=== PATIENT | male | born 1945 | race Caucasian/White ===

== ENCOUNTER 2017-10-21 15:21 | Outpatient (CLI) | payer MEDICARE, BC | END 2017-10-21 15:22 | disposition home or self-care (01) | LOC: BICMRI 15:21 | PROVIDERS: ATTEND Orthopaedic Surgery | DX: M25.512 Pain in left shoulder (principal); M19.012 Primary osteoarthritis, left shoulder; R93.7 Abnormal findings on diagnostic imaging of other parts of musculoskeletal system; Z98.890 Other specified postprocedural states ==

== ENCOUNTER 2021-07-12 06:01 | Inpatient (IN) | payer MEDICARE, BC ==
[2021-07-12] MEDS ORDERED: Iopamidol 370 76% 100 ML VIAL ONE (08:28)
[2021-07-12] MEDS ORDERED: Lidocaine 1% (PF) 30 ML VIAL ONE (09:08)
[2021-07-12] MEDS ORDERED: Ondansetron PF 4 MG/2 ML Vial ONE (09:32)
[2021-07-12] MEDS ORDERED: Fentanyl 100 MCG/2 ML VIAL ONE (09:32)
[2021-07-12] MEDS ORDERED: Midazolam HCl 2 mg/2 ml Vial ONE (09:33)
[2021-07-12] MEDS ORDERED: Nitroglycerin 100MG/250ML BOT 250 ML ONE (10:00)
[2021-07-12] MEDS ORDERED: Temazepam 15 MG CAP PO PRN ×2 (10:52→16:30)
[2021-07-12] MEDS ORDERED: Acetaminophen/Codeine 30-300mg Tablet ONE (12:24)
[2021-07-12] MEDS ORDERED: Nitroglycerin 0.4 MG TAB (25 Tab Bottle) SL PRN (12:30)
[2021-07-12] MEDS ORDERED: Acetaminophen/Codeine 30-300mg Tablet PO PRN ×2 (12:30)
[2021-07-12] MEDS ORDERED: Sodium Chloride 0.9% 1,000 ML IV SCH (12:30)
[2021-07-12] MEDS ORDERED: Communication Order-Pharmacy FS SCH (15:58)
[2021-07-12] MEDS: Rosuvastatin 20 MG TAB PO SCH ×2 (21:17→21:33)
[2021-07-12] MEDS: Lisinopril 20 MG TAB PO SCH (21:17)
[2021-07-12] MEDS: Carvedilol 6.25 MG TAB PO SCH (21:18)
[2021-07-13] MEDS ORDERED: CEFAZOLIN 2 GM, Admixture Fee 1 EACH in Sodium Chloride 0.9% 100 ML IVPB SCH (02:45)
[2021-07-13] MEDS ORDERED: Lactated Ringer's 1,000 ML IV SCH (06:00)
[2021-07-13] MEDS: Lisinopril 20 MG TAB PO SCH (07:48)
[2021-07-13] MEDS: Carvedilol 6.25 MG TAB PO SCH (07:50)
[2021-07-13] MEDS ORDERED: Amlodipine 10 MG TAB PO SCH (09:00)
[2021-07-13] MEDS ORDERED: Aspirin 325 MG TAB PO SCH (09:00)
[2021-07-13] MEDS ORDERED: Allopurinol 300 MG TAB PO SCH (09:00)
[2021-07-13] MEDS ORDERED: Cyanocobalamin (Vitamin B-12) 1,000 MCG TAB PO SCH (09:00)
[2021-07-13] MEDS ORDERED: Magnesium Oxide 400 MG TAB PO SCH (09:00)
[2021-07-13] MEDS ORDERED: PHENYLEPHRINE-NS 100 MCG/ML 10 ML SYRINGE ONE ×2 (10:19→14:14)
[2021-07-13] MEDS ORDERED: Albumin 5% 500 ML ONE ×2 (10:19→15:18)
[2021-07-13] MEDS ORDERED: EPINEPHrine 1 MG/ML AMP ONE (10:19)
[2021-07-13] MEDS ORDERED: Bupivacaine PF 0.5% 30 ML VIAL ONE (10:19)
[2021-07-13] MEDS ORDERED: Heparin 10,000 UNITS/1 ML VIAL 30,000 UNITS in Sodium Chloride 0.9% 1,000 ML FS SCH (11:15)
[2021-07-13] MEDS ORDERED: Fentanyl 250 MCG/5 ML VIAL ONE ×3 (12:04→12:05)
[2021-07-13] MEDS ORDERED: Phenylephrine 10 MG/ML VIAL ONE (12:05)
[2021-07-13] MEDS ORDERED: ceFAZolin (BATCH) 2 GM/100 ML BAG ONE (13:36)
[2021-07-13] MEDS ORDERED: Magnesium Sulfate 1 GM/2 ML VIAL ONE (14:14)
[2021-07-13] MEDS ORDERED: PROPOFOL 200 MG/20 ML VIAL ONE (14:14)
[2021-07-13] MEDS ORDERED: ePHEDrine 50 MG/ML VIAL ONE (14:14)
[2021-07-13] MEDS ORDERED: Thrombin 5000 UNITS/5 ML VIAL ONE (14:14)
[2021-07-13] MEDS ORDERED: Calcium Chloride 1 GM/10 ML Abboject SYRINGE ONE (14:14)
[2021-07-13] MEDS ORDERED: Heparin 5,000 UNITS/ML VIAL ONE (14:14)
[2021-07-13] MEDS ORDERED: Sodium Bicarb 50 MEQ/50 ML Abboject 8.4% SYRINGE ONE (14:14)
[2021-07-13] MEDS ORDERED: Heparin 30,000 units/30 ml VIAL ONE (14:14)
[2021-07-13] MEDS ORDERED: Aminocaproic Acid 5 GM/20 ML VIAL ONE (14:14)
[2021-07-13] MEDS ORDERED: Lidocaine 2% PF 100 mg/5 ml Syringe ONE (14:14)
[2021-07-13] MEDS ORDERED: Papaverine 60 MG/2 ML VIAL ONE (14:14)
[2021-07-13] MEDS ORDERED: Mannitol 12.5 GM/50 ML ONE (14:14)
[2021-07-13] MEDS ORDERED: Protamine Sulfate 250 MG/25 ML VIAL ONE (14:14)
[2021-07-13] MEDS ORDERED: Metoprolol Tartrate 5 MG/5 ML VIAL ONE (14:14)
[2021-07-13] MEDS ORDERED: Rocuronium Bromide 10 MG/ML (10ML VIAL) ONE (14:14)
[2021-07-13] MEDS ORDERED: Lidocaine 1% PF 5 ML VIAL ONE (14:14)
[2021-07-13] MEDS ORDERED: Cardioplegic Soln 1,000 ML BAG ONE (14:14)
[2021-07-13] MEDS ORDERED: Hetastarch 6% 500 ML 500 ML IVPB PRN (17:16)
[2021-07-13] MEDS ORDERED: Mag-Al 1200 mg/1200 mg/30 ML UDCUP PO PRN (17:16)
[2021-07-13] MEDS ORDERED: Fentanyl 100 MCG/2 ML VIAL SLOW IVP PRN ×2 (17:16)
[2021-07-13] MEDS ORDERED: DOPamine 400 MG/D5W 250 ML 250 ML IVPB PRN (17:16)
[2021-07-13] MEDS ORDERED: Bisacodyl 10 MG SUPP PR PRN (17:16)
[2021-07-13] MEDS ORDERED: Post-Op Insulin Drip Protocol IVPB ONE (17:16)
[2021-07-13] MEDS ORDERED: HYDROcodone/Acetaminophen 5/325 mg Tablet PO PRN (17:16)
[2021-07-13] MEDS ORDERED: Acetaminophen 325 MG TAB PO PRN (17:16)
[2021-07-13] MEDS ORDERED: Bisacodyl 5 MG TAB PO PRN (17:16)
[2021-07-13] MEDS ORDERED: hydrALAZINE 20 MG/ML VIAL SLOW IVP PRN (17:16)
[2021-07-13] MEDS ORDERED: Nitroglycerin 50 MG/250 ML BOT 250 ML IVPB PRN (17:16)
[2021-07-13] MEDS ORDERED: niCARdipine 25 MG in Sodium Chloride 0.9% 250 ML 250 ML IVPB PRN (17:16)
[2021-07-13] MEDS ORDERED: Guaifenesin DM 100-10/5 ML UDCUP PO PRN (17:16)
[2021-07-13] MEDS ORDERED: Insulin Regular 300 UNITS/3 ML VIAL SC PRN (17:30)
[2021-07-13] MEDS ORDERED: HUMULIN R 100 UNITS in Sodium Chloride 0.9% 100 ML IVPB SCH (17:30)
[2021-07-13] MEDS ORDERED: Dextrose 50% Abboject 50 ML SYRINGE SLOW IVP PRN (17:30)
[2021-07-13] MEDS ORDERED: Dextrose 5% in Water 1,000 ML IV PRN (17:30)
[2021-07-13] MEDS: Morphine 2 MG/ML VIAL SLOW IVP PRN ×2 (17:36→18:08)
[2021-07-13 17:41] LABS: #Eosinphils 0.3 thou/uL (0.0-0.7); #Lymphocytes 2.3 thou/uL (1.20-3.40); #Monocytes 0.2 thou/uL (0.11-0.59); #Neutrophils 9.2 thou/uL (1.40-6.50); %Basophils 0.3 % (0.0-1.0); %Eosinophils 2.5 % (0.0-10.0); %Monocytes 1.5 % (0.0-10.0); %Neutrophils 76.7 % (42.0-75.0); Hemoglobin 11.4 g/dL (14.0-18.0); Mean Corpuscular HGB CONC 33.5 g/dL (32.0-36.0); Mean Corpuscular Hemoglobin 31.8 pg (27.0-31.0); Mean Corpuscular Volume 94.9 fL (78.0-98.0); Mean Platelet Volume 6.2 fL (7.4-10.4); Platelet Count 144 thou/uL (130-400); RBC Distribution Width 12.7 % (11.5-14.5); Red Blood Cell (RBC) Count 3.58 mill/uL (4.70-6.10)
[2021-07-13 17:50] LABS: INR-International Normal Ratio 1.4
[2021-07-13] MEDS: Sodium Chloride 0.9% 1,000 ML IV SCH (17:56)
[2021-07-13 18:00] LABS: Anion Gap 13 mmol/L (10-20); BUN (Urea Nitrogen) 15 mg/dL (8.4-25.7); Calc. Creatinine Clearance 89 mL/min (70-130); Carbon Dioxide 22 mmol/L (23-31); Chloride 110 mmol/L (98-107); Glucose 113 mg/dL (83-110); Potassium 3.9 mmol/L (3.5-5.1); Sodium 141 mmol/L (136-145)
[2021-07-13] MEDS: Ketorolac Tromethamine 30 MG/ML VIAL IVP SCH ×2 (18:14→23:19)
[2021-07-13] MEDS: Potassium Chloride 20 MEQ/100 ML PREMIX BAG IVPB PRN (19:40)
[2021-07-13 19:42] LABS: Actual Bicarbonate (HCO3a) 22.3 mEq/L (22-28); Base Excess (BEa) -3.7 mEq/L (-2.0 to +3.0); CO2 Tension 43.9 mmHg (35.0-45.0); Calcium, Ionized (arterial) 1.13 mmol/L (1.12-1.30); Carboxyhemoglobin (COHb) 0.7 gm% (0.0-3.0); Hemoglobin (Hb) 12.8 g/dL (14.0-18.0); O2 Tension (PaO2), arterial 104.9 mmHg (> 70.0); Potassium - ABG Lab 3.56 mmol/L (3.70-5.30); pH, Arterial 7.32 (7.35-7.45)
[2021-07-13 19:43] LABS: ALV-art Gradient 125.425 mmHg (0-20)
[2021-07-13] MEDS: Ondansetron PF 4 MG/2 ML Vial IVP PRN (20:09)
[2021-07-13] MEDS: HYDROcodone/Acetaminophen 5/325 mg Tablet PO PRN (20:11)
[2021-07-13] MEDS: Famotidine/PF 20 mg/2ml Vial SLOW IVP SCH (20:12)
[2021-07-13] MEDS: ceFAZolin (BATCH) 2 GM in Premix Bag 1 BAG IVPB SCH (22:41)
[2021-07-13 23:26] LABS: Hemoglobin 12.1 g/dL (14.0-18.0)
[2021-07-13 23:49] LABS: Potassium 3.2 mmol/L (3.5-5.1)
[2021-07-14] MEDS: HYDROcodone/Acetaminophen 5/325 mg Tablet PO PRN ×6 (00:59→22:15)
[2021-07-14 04:19] LABS: #Eosinphils 0.2 thou/uL (0.0-0.7); #Lymphocytes 0.6 thou/uL (1.20-3.40); #Monocytes 0.9 thou/uL (0.11-0.59); #Neutrophils 10.4 thou/uL (1.40-6.50); %Basophils 0.2 % (0.0-1.0); %Eosinophils 1.3 % (0.0-10.0); %Lymphocytes 4.7 % (21.0-51.0); %Monocytes 7.6 % (0.0-10.0); %Neutrophils 86.2 % (42.0-75.0); Hemoglobin 11.7 g/dL (14.0-18.0); Mean Corpuscular HGB CONC 33.2 g/dL (32.0-36.0); Mean Corpuscular Hemoglobin 31.7 pg (27.0-31.0); Mean Corpuscular Volume 95.4 fL (78.0-98.0); Mean Platelet Volume 6.1 fL (7.4-10.4); Platelet Count 166 thou/uL (130-400); RBC Distribution Width 12.8 % (11.5-14.5); Red Blood Cell (RBC) Count 3.71 mill/uL (4.70-6.10)
[2021-07-14 04:41] LABS: Anion Gap 12 mmol/L (10-20); BUN (Urea Nitrogen) 14 mg/dL (8.4-25.7); Calc. Creatinine Clearance 100 mL/min (70-130); Calcium 7.9 mg/dL (7.8-10.44); Carbon Dioxide 21 mmol/L (23-31); Chloride 109 mmol/L (98-107); Glucose 104 mg/dL (83-110); Potassium 3.7 mmol/L (3.5-5.1); Sodium 138 mmol/L (136-145)
[2021-07-14] MEDS: Ketorolac Tromethamine 30 MG/ML VIAL IVP SCH ×3 (05:46→18:29)
[2021-07-14] MEDS: Potassium Chloride 20 MEQ/100 ML PREMIX BAG IVPB PRN (05:46)
[2021-07-14] MEDS: ceFAZolin (BATCH) 2 GM in Premix Bag 1 BAG IVPB SCH ×2 (05:47→13:14)
[2021-07-14] MEDS: Sodium Chloride 0.9% 1,000 ML IV SCH ×2 (05:49→19:56)
[2021-07-14] MEDS ORDERED: Albumin 5% 500 ML ONE (07:06)
[2021-07-14] MEDS: Aspirin 325 MG TAB PO SCH (07:42)
[2021-07-14] MEDS: Enoxaparin Sodium 40 MG/0.4 ML SYRINGE SC SCH (07:42)
[2021-07-14] MEDS: Famotidine/PF 20 mg/2ml Vial SLOW IVP SCH ×2 (07:43→21:08)
[2021-07-14] MEDS: Ondansetron PF 4 MG/2 ML Vial IVP PRN (11:11)
[2021-07-14] MEDS: Norepinephrine 8 MG in Dextrose 5% in Water 242 ML IVPB PRN ×2 (13:12→16:42)
[2021-07-15] MEDS: Ketorolac Tromethamine 30 MG/ML VIAL IVP SCH ×4 (00:52→17:41)
[2021-07-15] MEDS: Sodium Chloride 0.9% 1,000 ML IV SCH (03:54)
[2021-07-15 04:34] LABS: #Eosinphils 0.2 thou/uL (0.0-0.7); #Monocytes 0.9 thou/uL (0.11-0.59); #Neutrophils 8.3 thou/uL (1.40-6.50); %Basophils 0.1 % (0.0-1.0); %Eosinophils 2.1 % (0.0-10.0); %Lymphocytes 9.8 % (21.0-51.0); %Monocytes 8.5 % (0.0-10.0); %Neutrophils 79.5 % (42.0-75.0); Hemoglobin 10.2 g/dL (14.0-18.0); Mean Corpuscular HGB CONC 32.7 g/dL (32.0-36.0); Mean Corpuscular Hemoglobin 31.5 pg (27.0-31.0); Mean Corpuscular Volume 96.3 fL (78.0-98.0); Mean Platelet Volume 6.4 fL (7.4-10.4); Platelet Count 138 thou/uL (130-400); RBC Distribution Width 12.8 % (11.5-14.5); Red Blood Cell (RBC) Count 3.25 mill/uL (4.70-6.10); White Blood Cell (WBC) Count 10.4 thou/uL (4.8-10.8)
[2021-07-15 05:01] LABS: Anion Gap 8 mmol/L (10-20); BUN (Urea Nitrogen) 17 mg/dL (8.4-25.7); Calc. Creatinine Clearance 77 mL/min (70-130); Calcium 7.7 mg/dL (7.8-10.44); Carbon Dioxide 23 mmol/L (23-31); Chloride 106 mmol/L (98-107); Glucose 102 mg/dL (83-110); Sodium 133 mmol/L (136-145)
[2021-07-15] MEDS: Potassium Chloride 20 MEQ/100 ML PREMIX BAG IVPB PRN (05:56)
[2021-07-15] MEDS: Enoxaparin Sodium 40 MG/0.4 ML SYRINGE SC SCH (09:20)
[2021-07-15] MEDS: Aspirin 325 MG TAB PO SCH (09:20)
[2021-07-15] MEDS: HYDROcodone/Acetaminophen 5/325 mg Tablet PO PRN ×3 (09:21→22:07)
[2021-07-15 15:28] VITALS: BMI 29.5
[2021-07-16] MEDS: Ketorolac Tromethamine 30 MG/ML VIAL IVP SCH ×4 (00:03→18:15)
[2021-07-16] MEDS: HYDROcodone/Acetaminophen 5/325 mg Tablet PO PRN ×3 (08:02→21:42)
[2021-07-16] MEDS: Potassium Chloride 10 MEQ TAB PO SCH (08:10)
[2021-07-16] MEDS: Furosemide 40 MG TAB PO SCH (08:10)
[2021-07-16] MEDS: Aspirin 325 MG TAB PO SCH (09:08)
[2021-07-16] MEDS: Enoxaparin Sodium 40 MG/0.4 ML SYRINGE SC SCH (09:09)
[2021-07-16] MEDS ORDERED: Bisacodyl 5 MG TAB PO PRN (15:17)
[2021-07-16] MEDS ORDERED: Zolpidem Tartrate 5 MG TAB PO PRN (15:17)
[2021-07-16] MEDS ORDERED: Milk Of Magnesia 30 ML UDCUP PO PRN (15:17)
[2021-07-16] MEDS ORDERED: Mineral Oil ENEMA PR PRN (15:17)
[2021-07-16] MEDS ORDERED: Nitroglycerin 0.4 MG TAB (25 Tab Bottle) SL PRN (15:17)
[2021-07-16] MEDS ORDERED: Bisacodyl 10 MG SUPP PR PRN (15:17)
[2021-07-16] MEDS ORDERED: Guaifenesin DM 100-10/5 ML UDCUP PO PRN (15:17)
[2021-07-16] MEDS ORDERED: diphenhydrAMINE 25 MG CAP PO PRN (15:17)
[2021-07-16] MEDS ORDERED: Mag-Al 1200 mg/1200 mg/30 ML UDCUP PO PRN (15:17)
[2021-07-16] MEDS ORDERED: Carvedilol 3.125 MG TAB PO SCH (15:30)
[2021-07-16] MEDS: Carvedilol 3.125 MG TAB PO SCH (16:48)
[2021-07-17] MEDS: HYDROcodone/Acetaminophen 5/325 mg Tablet PO PRN ×2 (05:00→14:50)
[2021-07-17] MEDS: Potassium Chloride 10 MEQ TAB PO SCH (08:31)
[2021-07-17] MEDS: Rosuvastatin 20 MG TAB PO SCH (08:31)
[2021-07-17] MEDS: Furosemide 40 MG TAB PO SCH (08:31)
[2021-07-17] MEDS: Aspirin 325 MG TAB PO SCH (08:31)
[2021-07-17] MEDS: Carvedilol 3.125 MG TAB PO SCH ×2 (08:32→16:47)
[2021-07-17] MEDS: Magnesium Oxide 400 MG TAB PO SCH (08:32)
[2021-07-17] MEDS: Enoxaparin Sodium 40 MG/0.4 ML SYRINGE SC SCH (08:32)
[2021-07-17] MEDS: Polyethylene Glycol 3350 17 GM Packet PO SCH (09:45)
[2021-07-17 14:56] LABS: Actual Bicarbonate (HCO3a) 21.4 mEq/L (22-28); Analyzer IN Cardio OR; Base Excess (BEa) -3.7 mEq/L (-2.0 to +3.0); Calcium, Ionized (arterial) 1.12 mmol/L (1.12-1.30); Carboxyhemoglobin (COHb) 0.3 gm% (0.0-3.0); O2 Tension (PaO2), arterial 256.3 mmHg (> 70.0); Potassium - ABG Lab 3.85 mmol/L (3.70-5.30); pH, Arterial 7.36 (7.35-7.45)
[2021-07-17 14:57] LABS: Actual Bicarbonate (HCO3v) 22 mEq/L (22-28); Analyzer IN Cardio OR; Base Excess -2.8 mEq/L (-2.0 to +3.0); Calcium, Ionized (venous) 1.07 mmol/L (1.16-1.32); Chloride (VBG) 108 mmol/L (98-106); Hemoglobin (Hb) 9.5 g/dL (12.6-17.4); Potassium (VBG) 4.15 mmol/L (3.70-5.30); Sodium 134.8 mmol/L (133-146); pH (venous) 7.37 (7.32-7.43)
[2021-07-17 14:57] LABS: Actual Bicarbonate (HCO3a) 21.5 mEq/L (22-28); Analyzer IN Cardio OR; Base Excess (BEa) -3.1 mEq/L (-2.0 to +3.0); CO2 Tension 36.8 mmHg (35.0-45.0); Calcium, Ionized (arterial) 1.05 mmol/L (1.12-1.30); Carboxyhemoglobin (COHb) 0.2 gm% (0.0-3.0); Hemoglobin (Hb) 9.5 g/dL (14.0-18.0); O2 Tension (PaO2), arterial 393.2 mmHg (> 70.0); Potassium - ABG Lab 4.18 mmol/L (3.70-5.30); pH, Arterial 7.39 (7.35-7.45)
[2021-07-17 14:57] LABS: Actual Bicarbonate (HCO3a) 21.9 mEq/L (22-28); Analyzer IN Cardio OR; Base Excess (BEa) -3.3 mEq/L (-2.0 to +3.0); CO2 Tension 39.4 mmHg (35.0-45.0); Calcium, Ionized (arterial) 1.14 mmol/L (1.12-1.30); Carboxyhemoglobin (COHb) 0.4 gm% (0.0-3.0); Hemoglobin (Hb) 9.5 g/dL (14.0-18.0); O2 Tension (PaO2), arterial 130.1 mmHg (> 70.0); Potassium - ABG Lab 3.91 mmol/L (3.70-5.30); pH, Arterial 7.36 (7.35-7.45)
[2021-07-17 14:58] LABS: Actual Bicarbonate (HCO3a) 19.3 mEq/L (22-28); Analyzer IN Cardio OR; Base Excess (BEa) -4.9 mEq/L (-2.0 to +3.0); Calcium, Ionized (arterial) 1.16 mmol/L (1.12-1.30); Carboxyhemoglobin (COHb) 0.7 gm% (0.0-3.0); Hemoglobin (Hb) 12.4 g/dL (14.0-18.0); O2 Tension (PaO2), arterial 200.8 mmHg (> 70.0); Potassium - ABG Lab 3.65 mmol/L (3.70-5.30); pH, Arterial 7.38 (7.35-7.45)
[2021-07-17 14:58] LABS: Analyzer IN Cardio OR; CO2 Tension 29.9 mmHg (35.0-45.0); Calcium, Ionized (arterial) 1.17 mmol/L (1.12-1.30); Carboxyhemoglobin (COHb) 0.8 gm% (0.0-3.0); Hemoglobin (Hb) 12.9 g/dL (14.0-18.0); O2 Tension (PaO2), arterial 174.4 mmHg (> 70.0); Potassium - ABG Lab 3.76 mmol/L (3.70-5.30); pH, Arterial 7.44 (7.35-7.45)
[2021-07-17 14:59] LABS: Puncture Site Arterial Line
[2021-07-17 14:59] LABS: Puncture Site Arterial Line
[2021-07-17 15:00] LABS: Puncture Site Arterial Line
[2021-07-17 15:01] LABS: Puncture Site Arterial Line
[2021-07-17 15:02] LABS: Puncture Site Arterial Line
[2021-07-18 07:19] VITALS: TEMP 98.6
[2021-07-18] MEDS ORDERED: Carvedilol 6.25 MG TAB PO SCH (08:00)
[2021-07-18] MEDS: Carvedilol 3.125 MG TAB PO SCH (08:16)
[2021-07-18] MEDS: Furosemide 40 MG TAB PO SCH (08:58)
[2021-07-18] MEDS: Aspirin 325 MG TAB PO SCH (08:58)
[2021-07-18] MEDS: Rosuvastatin 20 MG TAB PO SCH (08:58)
[2021-07-18] MEDS: Potassium Chloride 10 MEQ TAB PO SCH (08:58)
[2021-07-18] MEDS: Magnesium Oxide 400 MG TAB PO SCH (08:58)
[2021-07-18 08:59] VITALS: BP 120/60
[2021-07-18] MEDS: Enoxaparin Sodium 40 MG/0.4 ML SYRINGE SC SCH (08:59)
[2021-07-18] MEDS: Polyethylene Glycol 3350 17 GM Packet PO SCH (08:59)
== END 2021-07-18 10:30 | disposition home or self-care (01) | DRG 234 ==
LOC: CCL 06:01 → 2NO 10:26 → CCU 07-13 10:24 → IMCU/EMU 07-17 10:54
PROVIDERS: ADMIT Internal Medicine Cardiovascular Disease; ATTEND Internal Medicine Cardiovascular Disease
PROC: 4A023N7 Measurement of Cardiac Sampling and Pressure, Left Heart, Percutaneous Approach (ICD-10-PCS; 2021-07-12)
PROC: B2111ZZ Fluoroscopy of Multiple Coronary Arteries using Low Osmolar Contrast (ICD-10-PCS; 2021-07-12)
PROC: B2151ZZ Fluoroscopy of Left Heart using Low Osmolar Contrast (ICD-10-PCS; 2021-07-12)
PROC: 021009W Bypass Coronary Artery, One Artery from Aorta with Autologous Venous Tissue, Open Approach (ICD-10-PCS; principal; 2021-07-13)
PROC: 02100Z9 Bypass Coronary Artery, One Artery from Left Internal Mammary, Open Approach (ICD-10-PCS; 2021-07-13)
PROC: 06BQ0ZZ Excision of Left Saphenous Vein, Open Approach (ICD-10-PCS; 2021-07-13)
PROC: 5A1221Z Performance of Cardiac Output, Continuous (ICD-10-PCS; 2021-07-13)
PROC: 02L70CK Occlusion of Left Atrial Appendage with Extraluminal Device, Open Approach (ICD-10-PCS; 2021-07-13)
PROC: 3E033XZ Introduction of Vasopressor into Peripheral Vein, Percutaneous Approach (ICD-10-PCS; 2021-07-13)
DX: I25.10 Atherosclerotic heart disease of native coronary artery without angina pectoris (principal); T82.855A Stenosis of coronary artery stent, initial encounter; I10 Essential (primary) hypertension; R00.1 Bradycardia, unspecified; E78.00 Pure hypercholesterolemia, unspecified; Y83.1 Surgical operation with implant of artificial internal device as the cause of abnormal reaction of the patient, or of later complication, without mention of misadventure at the time of the procedure; I95.9 Hypotension, unspecified; Z78.1 Physical restraint status; Z79.899 Other long term (current) drug therapy; Z79.82 Long term (current) use of aspirin; I25.2 Old myocardial infarction; Z85.46 Personal history of malignant neoplasm of prostate; Z95.5 Presence of coronary angioplasty implant and graft; Z98.890 Other specified postprocedural states; Z82.49 Family history of ischemic heart disease and other diseases of the circulatory system; Z82.3 Family history of stroke; Z80.9 Family history of malignant neoplasm, unspecified; Z90.79 Acquired absence of other genital organ(s)
CPT/HCPCS: 36415; 36416; 36430; 71045; 80048; 80053; 82805; 85025; 85610; 85730; 86850; 86900; 86901; 93005; 93010; 93458; 93798; 94002; 97139; 99152; 99153; C1751; J0171; J0690; J1265; J1642; J1644; J1650; J1815; J1885; J2001; J2150; J2250; J2270; J2370; J2405; J2440; J2704; J2720; J3010; J3370; J3475; J3480; J3490; J7050; J7070; J7120; P9045; Q9967; S0017; S0020; S0028; U0003; U0005

== ENCOUNTER 2023-01-30 09:23 | Outpatient (CLI) | payer MEDICARE, BC | END 2023-01-30 09:24 | disposition home or self-care (01) | LOC: SCSMRI 09:23 | PROVIDERS: ATTEND Family Medicine | DX: M47.22 Other spondylosis with radiculopathy, cervical region (principal); M48.02 Spinal stenosis, cervical region; M48.03 Spinal stenosis, cervicothoracic region | CPT/HCPCS: 72141 ==